=== PATIENT | female | born 1995 | race Caucasian/White ===

== ENCOUNTER 2020-07-05 19:26 | Emergency (ER) | payer OTHER, SELFPAY ==
--- NOTE | ~2020-07-05 | XR_ITS ---
EXAMINATION: XR chest 2V DATE: 07/05/2020 20:06 INDICATION: Midsternal chest pain TECHNIQUE: PA and lateral views of the chest are obtained. COMPARISON: 05/01/2008 FINDINGS: The lungs are free of acute opacities. There is no pleural effusion or pneumothorax. The ca rdiomediastinal silhouette is normal. The visualized bones and soft tissues are unremarkable. IMPRESSION: 1. No acute cardiopulmonary abnormality. Reviewed, dictated and finalized at location A.
--- NOTE | 2020-07-05 19:39 | ED.DIZZY ---
HPI - Dizziness General Chief Complaint: Dizziness Stated Complaint: chest pain Time Seen by Provider: 07/05/20 19:39 Source: patient and family Mode of arrival: ambulatory Limitations: no limitations History of Present Illness HPI Narrative: Patient is a 25-year-old female who presents for evaluation of chest pain. Patient was brought in by EMS from her place of work at the [facility] for sudden onset of chest pain. Patient states he was sitting, had not had any contact with any of the children there, when she suddenly felt a centralized chest pain. It was sharp, burning in nature and called her to burp and have some belching. Patient states that she took an aspirin and the pain started to subside. She felt slightly lightheaded and dizzy with the pain. Currently, patient has no pain. No dizziness. No abdominal pain concurrently. No nausea or vomiting. No current shortness of breath or palpitations. Patient denies any history of anxiety. She states that she has recently experienced intermittent headaches, but does not have a headache currently. She denies vision changes, numbness, weakness, nausea or vomiting. No thunderclap sensation to the headaches. No history of sudden cardiac in the family. Patient does take control. She does not smoke. Related Data Allergies Allergy/AdvReac Type Severity Reaction Status Date / Time horses cats hay straw Allergy Mild Uncoded 07/21/11 17:01 Review of Systems Review of Systems: Narrative: CONSTITUTIONAL: Denies fever, chills, or sweats. EYES: Denies visual changes, redness, or discharge. ENT: Denies rhinorrhea, congestion, sore throat, or otalgia. CARDIOVASCULAR: Denies current chest pain, palpitations, or edema. RESPIRATORY: Denies cough or dyspnea. GASTROINTESTINAL: Denies abdominal pain, nausea, vomiting, or diarrhea. GENITOURINARY: Denies dysuria or hematuria. SKIN: Denies rash or itching. MUSCULOSKELETAL: Denies back pain, joint pain, or myalgia. NEUROLOGIC: Denies current headache, numbness, or weakness. PSYCHIATRIC: Denies history of anxiety or depression. [facility] Past Medical History Medical History Constipation Social History Social History (Updated 07/05/20 @ 19:52 by Mile Andrews MD) Smoking status: Never smoker Alcohol intake: never Substance use: never Gender identity (if verbalized by the patient): Female Exam Narrative: Exam Narrative: GENERAL: Awake, alert, conversant HEAD: Normocephalic, atraumatic. EYES: 2+ PERRLA and EOMI. No nystagmus. ENT: Nares clear, no rhinorrhea or epistaxis. Mucous membranes moist. NECK: Supple. CHEST: No respiratory distress, breathing even and non labored, no chest wall tenderness HEART: Regular rate, sinus rhythm ABDOMEN:Non distended, non tender EXTREMITIES: Normal range of motion. No edema. SKIN: Warm, dry, no rash. NEURO:No focal deficits. Alert and oriented x3. Finger to nose intact bilaterally. EOMs intact without nystagmus. No facial droop/asymmetry noted bilaterally. Grimace intact. Intact sensation in face. Hearing intact bilaterally. Shoulder shrug intact. Strength 5/5 bilateral upper extremities. Strength 5/5 bilateral lower extremities. Reflexes 2+ patellar. Heel to zhu intact bilaterally. Patient is ambulatory with a narrow base, steady gait. Course Vital Signs Vital signs: Vital Signs Pulse Rate 70 07/05/20 20:49 Respiratory Rate 16 07/05/20 20:49 Blood Pressure 128/72 07/05/20 20:49 Pulse Oximetry 100 07/05/20 20:49 Pulse Rate 78 07/05/20 22:27 Respiratory Rate 16 07/05/20 22:27 Blood Pressure 130/79 07/05/20 22:27 Pulse Oximetry 100 07/05/20 22:27 MDM - Dizziness MDM Narrative Medical decision making narrative: Patient presented for evaluation of chest pain and dizziness that has mostly resolved at the time of assessment. No current chest pain at the time of my assessment. Patient'
--- NOTE | 2020-07-05 20:10 | ECG_ITS ---
Measurements Intervals [place] Rate: 62 P: 15 [place]: 160 QRS: 34 QRSD: 93 T: 16 QT: 416 QTc: 423 Interpretive Statements SINUS RHYTHM NORMAL ECG Electronically Signed On 07-06-2020 6:46:10 CDT by Ashvin Ryan D.O.
[2020-07-05] MEDS: ASPIRIN 81 MG CHEWABLE TABLET 324 MG PO (20:11)
[2020-07-05] MEDS: SODIUM CHLORIDE 0.9% IV 1,000 ML 999 ML IV CONT (20:11)
[2020-07-05 20:26] LABS: Basophils Percent Auto 0.4 % (0.2-1.2); Eosinophils Absolute Auto 0.2 K/mm3 (0-0.3); Eosinophils Percent Auto 2.5 % (0-4.4); Hemoglobin 12.8 g/dL (12.0-15.0); Immature Granulocyte Absolute 0.02 K/mm3 (0.00-0.031); Immature Granulocyte Percent A 0.2 % (0-0.5); Lymphocytes Absolute Auto 2.54 K/mm3 (0.9-3.2); Lymphocytes Percent Auto 30.2 % (18.3-44.2); Mean Corpuscular HGB Conc 33.7 g/dl (32-36); Mean Corpuscular Hemoglobin 30.3 pg (26-34); Mean Platelet Volume 11.4 fl (7.4-10.4); Monocytes Absolute Auto 0.8 K/mm3 (0.1-0.6); Monocytes Percent Auto 9.2 % (2.6-8.5); Neutrophils Absolute Auto 4.8 K/mm3 (1.3-6.7); Neutrophils Percent Auto 57.5 % (45.5-73.1); Platelet Count Result 301 k/mm3 (150-375); Red Blood Count 4.22 M/mm3 (4.2-5.4); Red Cell Distribution Width 12.3 % (11.5-14.5); White Blood Count 8.4 K/mm3 (4.5-10.0)
[2020-07-05 20:37] LABS: Anion Gap 7 mmol/L (8-16); Blood Urea Nitrogen 13 mg/dL (7-17); Calcium 8.8 mg/dL (8.4-10.2); Carbon Dioxide 25 mmol/L (22-30); Chloride 104 mmol/L (98-107); Estimated CRCL calculation 86 ml/min; Estimated Glomerular Filt Rate > 60; Glucose 93 mg/dL (65-105); Potassium 3.8 mmol/L (3.4-5.0); Sodium 136 mmol/L (137-145)
[2020-07-05 20:39] LABS: Partial Thromboplastin Time 26.4 SECONDS (22.3-36.8); Prothrombin Time 12.8 Seconds (11.1-14.7)
[2020-07-05 20:40] LABS: Add Urine Microscopic? YES; Appearance Urine Clear (Clear); Bilirubin Urine Negative (Negative); Blood Urine Negative (Negative); Color Urine Yellow (Yellow); Glucose Urine UA Negative (Negative); Ketones Urine Negative (Negative); Leukocyte Esterase Ur Trace LEU/UL (Negative); Mucus Urine Rare /lpf; Nitrate Urine Negative (Negative); Protein Urine Negative (Negative); RBC Urine 0-2 /hpf (0-2); Specific Grav Ur 1.021 (1.001-1.035); Squamous Epithelial Cell Urine Few /hpf (Few); Urobilinogen Urine Negative mg/dL (<2.0); WBC Urine 0-3 /hpf
[2020-07-05 20:49] VITALS: BP 128/72; PULSE 70; RESP 16; O2SAT 100
[2020-07-05 20:49] LABS: Troponin I < 0.012 ng/mL (0.000-0.034)
[2020-07-05 21:04] LABS: D Dimer 0.27 ug/mL (<0.48)
[2020-07-05 21:15] VITALS: BP 114/74; PULSE 72; RESP 18; O2SAT 100
[2020-07-05] MEDS: ACETAMINOPHEN 500 MG TABLET 1000 MG PO (22:07)
[2020-07-05 22:27] VITALS: BP 130/79; PULSE 78; RESP 16; O2SAT 100
[2020-07-05 23:06] LABS: Troponin I < 0.012 ng/mL (0.000-0.034)
[2020-07-05 23:28] VITALS: BP 119/79; PULSE 78; RESP 16; O2SAT 99
== END 2020-07-05 23:29 | disposition home or self-care (01) ==
PROVIDERS: Emergency Provider Emergency Medicine
DX: R07.89 Other chest pain (principal); R42 Dizziness and giddiness
CPT/HCPCS: 36415; 71046; 80048; 81001; 81025; 84484; 85025; 85380; 85610; 85730; 93005; 96360; 99284; A9270; J7030

== ENCOUNTER 2020-07-20 09:05 | Inpatient (IN) | payer OTHER, SELFPAY ==
--- NOTE | ~2020-07-20 | US_ITS ---
EXAMINATION: US right upper quadrant EXAM DATE: 07/20/2020 15:40 INDICATION: Cholelithiasis, abnormal CT. TECHNIQUE: Multiple grayscale and Doppler images of the abdomen right upper quadrant were obtained (b y a technologist who performed the scan) and subsequently reviewed. There is no prior study for kaushik pollock. FINDINGS: The pancreatic head and body are normal in appearance. The pancreatic tail is not visualized. The l iver has normal echogenicity and contour. There are no focal liver lesions identified. There is no evidence of intrahepatic biliary duct dilation. Portal venous flow was seen in the hepatopedal, nor mal direction and has normal Doppler waveform. No right-sided hydronephrosis. Common bile duct measures 4-5 mm, which is normal. The gallbladder wall is normal in thickness, with expected amount of distention. No sonographic evidence of pericholecystic fluid. There is cholelith iasis. Technologist performing exam reports patient did not demonstrate sonographic Davila's sign. Please note that this sign is less reliable in patients who have received pain medication. IMPRESSION: 1. Cholelithiasis. Reviewed, dictated and finalized at location G. IMPRESSION: 1. Cholelithiasis.
--- NOTE | ~2020-07-20 | CT_ITS ---
EXAMINATION: CT abdomen pelvis w con DATE: 07/20/2020 13:19 INDICATION: Lower abdominal pain TECHNIQUE: Computed tomography (CT) of the abdomen and pelvis was performed with 100 mL Omnipaque-350 intravenous contrast. Automated exposure control and iterative reconstruction technique were employe d. The dose-length product was 934.44 mGy-cm. COMPARISON: 10/19/2015 FINDINGS: Change linear discoid atelectasis/scarring in the left lower lobe. Heart size is normal. No pericardi al or pleural effusion. Small sliding-type hiatal hernia. Liver, spleen, pancreas, bilateral adrenal glands and kidneys are normal. Multiple gallstones within the normal-appearing gallbladder with no ga llbladder wall thickening or pericholecystic inflammatory change to suggest acute cholecystitis. Norm al appendix. There is mild wall thickening in the distal colon suspicious for colitis although specif icity is decreased by decompressed state. There is fluid in the more proximal colon consistent with d iarrhea. Small bowel is normal with no obstruction. 2 cm subserosal fibroid along the right anterior aspect of the anteverted uterus. A couple 1.8 cm left ovarian cysts, one with peripheral crenelated e nhancing rim consistent with a partially collapsed corpus luteum cyst. Trace amount of likely physiol ogic free fluid in the pelvis. No abscess or free intraperitoneal gas. No pathologically enlarged abd ominal or pelvic lymphadenopathy. Mild lumbar spondylosis. IMPRESSION: 1. Mild wall thickening in the decompressed distal colon suspicious for colitis which could be infect ious, inflammatory or less likely ischemic in etiology.. 2. Cholelithiasis. 3. Small sliding-type hiatal hernia. 4. 2 cm uterine fibroid. 5. 1.8 cm left ovarian corpus luteum cyst. Reviewed, dictated and finalized at location A. IMPRESSION: 1. Mild wall thickening in the decompressed distal colon suspicious for colitis which could be infectious, inflammatory or less likely ischemic in etiology.. 2. Cholelithiasis. 3. Small sliding-type hiatal hernia. 4. 2 cm uterine fibroid. 5. 1.8 cm left ovarian corpus luteum cyst.
[2020-07-20 09:25] VITALS: BP 122/102; PULSE 82; RESP 22; TEMP 36.8; O2SAT 100
--- NOTE | 2020-07-20 10:39 | ECG_ITS ---
Measurements Intervals [place] Rate: 62 P: -14 [place]: 137 QRS: -55 QRSD: 93 T: -29 QT: 406 QTc: 415 Interpretive Statements SINUS RHYTHM WITH SINUS ARRHYTHMIA LEFT AXIS DEVIATION LOW QRS VOLTAGE IN LIMB LEADS BORDERLINE ST-T WAVE ABNORMALITY- INFERIOR LEADS BASELINE ARTIFACT- I, III, AVR, AVL, AVF BORDERLINE ECG Electronically Signed On 07-20-2020 11:23:34 CDT by Ashvin Ryan D.O.
--- NOTE | 2020-07-20 10:41 | ED.CHESTPAIN ---
HPI - Chest Pain General Chief Complaint: Chest Pain Stated Complaint: chest pain Time Seen by Provider: 07/20/20 09:57 Source: patient Mode of arrival: ambulatory Limitations: no limitations History of Present Illness HPI narrative: This patient is a 25 year old female who presents for evaluation of abdominal pain. Patient states she is having epigastric pain that radiates to her lower abdomen. She states this pain occurs in waves and she describes the pain as stabbing. This pain started at 2 am this morning. She has taken 600 mg ibuprofen and tums without relief. She also states her pain is so severe at times that she is vomiting. She was evaluated 2 weeks ago for epigastric pain and her evaluation was unremarkable. Related Data Home Medications Medication Instructions Recorded Confirmed norethindrone 1 mg-ethinyl 1 tablet PO DAILY 07/12/20 07/20/20 estradiol 35 mcg tablet Allergies Allergy/AdvReac Type Severity Reaction Status Date / Time horses cats hay straw Allergy Mild Swelling Uncoded 07/20/20 17:18 Review of Systems Review of Systems: All systems reviewed & are unremarkable except as noted in HPI and below Constitutional: Constitutional: Denies chills and Denies fever(s) Cardiovascular: Cardiovascular: Denies rapid heart rate and Denies radiating jaw, neck or arm pain Respiratory: Respiratory: Denies cough and Denies dyspnea Gastrointestinal: Gastrointestinal: Reports abdominal pain, Denies diarrhea, Reports nausea and Reports vomiting Genitourinary: Genitourinary: Denies dysuria and Denies vaginal discharge PMFSH Past Medical History Medical History (Updated 07/20/20 @ 19:07 by Kelsi Rock MD) Chronic GERD Constipation Surgical History Surgical History (Updated 07/20/20 @ 18:30 by Lucy Cantor NP) H/O wisdom tooth extraction History of nasal surgery x3 Family History Family History Father Myocardial infarction Hypertension Mother History of open heart surgery Grandparent Cancer of unknown origin Ovarian cyst Social History Social History (Updated 07/20/20 @ 18:31 by Lucy Cantor NP) Social History: the patient owns her own home. She is single and has no children. 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 She has a roommate but the roommate is leaving after 1 month. She does not use any alcohol. She has used marijuana in the past. She does not have any power remelt pan tank operator. She desires to be a full code. She said that she would choose her dad as a durable power remelt pan tank operator if need be. Smoking status: Light tobacco smoker Tobacco type: cigarettes Additional smoking assessment comments: smokes 1 cigarette on occasion while drinking Alcohol intake: current Drinks per week: 3 Substance use: never Substance use type: does not use Other substance usage details: occasional marijuana use for anxiety Gender identity (if verbalized by the patient): Female Spiritual care concerns: No Exam Const: General: alert Orientation/consciousness: patient oriented x3 Other: writing in pain Eyes: EOM: EOMs intact bilaterally Chest: Chest palpation & inspection: normal inspection of the chest Resp: Effort & Inspection: normal respiratory effort and no retractions Auscultation: clear to auscultation bilaterally Cardio: Rate: regular rate Rhythm: regular rhythm Heart sounds: no murmurs GI: GI Palp: Yes Soft to palpation, Yes Tenderness to palpation present (GI) (Diffuse), No Guarding due to palpation present (GI) and No Rigid due to palpation Skin: General skin exam: normal color Rashes: no rashes Neuro: General: patient oriented x3 and moves all extremities Course Reevaluation(s) Reevaluation #1: Patient reports she is still having pain. I discussed CT showing gallstones , left ovarian cyst and possible colitis. It is unclear if any of these are causing her pain
[2020-07-20] MEDS: LACTATED RINGERS 1,000 ML 999 ML IV CONT (10:44)
[2020-07-20] MEDS: ONDANSETRON INJ 4 MG/2 ML VIAL IV PUSH ×3 (10:45→15:10)
[2020-07-20] MEDS: DICYCLOMINE HCL INJ 20 MG/2 ML VIAL IM (10:45)
[2020-07-20 11:00] LABS: Basophils Percent Auto 0.3 % (0.2-1.2); Eosinophils Percent Auto 0.4 % (0-4.4); Hematocrit 38.9 % (37.0-47.0); Hemoglobin 13.5 g/dL (12.0-15.0); Immature Granulocyte Absolute 0.04 K/mm3 (0.00-0.031); Immature Granulocyte Percent A 0.4 % (0-0.5); Lymphocytes Absolute Auto 1.46 K/mm3 (0.9-3.2); Lymphocytes Percent Auto 13.2 % (18.3-44.2); Mean Corpuscular HGB Conc 34.7 g/dl (32-36); Mean Corpuscular Hemoglobin 30.3 pg (26-34); Mean Corpuscular Volume 87.4 fl (80-100); Mean Platelet Volume 12.2 fl (7.4-10.4); Monocytes Absolute Auto 0.7 K/mm3 (0.1-0.6); Monocytes Percent Auto 5.9 % (2.6-8.5); Neutrophils Absolute Auto 8.8 K/mm3 (1.3-6.7); Neutrophils Percent Auto 79.8 % (45.5-73.1); Platelet Count Result 315 k/mm3 (150-375); Red Blood Count 4.45 M/mm3 (4.2-5.4); Red Cell Distribution Width 12.1 % (11.5-14.5)
[2020-07-20 11:06] LABS: Alanine Aminotransferase 18 U/L (4-35); Albumin Level 4.4 g/dL (3.5-5.1); Alkaline Phosphatase 64 U/L (38-126); Anion Gap 11 mmol/L (8-16); Aspartate Amino Transferase 24 U/L (14-36); Bilirubin,Total 0.3 mg/dL (0.2-1.3); Blood Urea Nitrogen 8 mg/dL (7-17); Calcium 9.4 mg/dL (8.4-10.2); Carbon Dioxide 22 mmol/L (22-30); Chloride 104 mmol/L (98-107); Estimated CRCL calculation 136 ml/min; Estimated Glomerular Filt Rate > 60; Glucose 109 mg/dL (65-105); Lipase 72 U/L (23-300); Potassium 3.7 mmol/L (3.4-5.0); Sodium 137 mmol/L (137-145)
[2020-07-20 11:16] LABS: Add Urine Microscopic? YES; Appearance Urine Clear (Clear); Bacteria Urine Trace /hpf; Bilirubin Urine Negative (Negative); Blood Urine Negative (Negative); Color Urine Yellow (Yellow); Glucose Urine UA Negative (Negative); Ketones Urine 1+ mg/dL (Negative); Leukocyte Esterase Ur Negative LEU/UL (Negative); Mucus Urine Heavy /lpf; Nitrate Urine Negative (Negative); Protein Urine 1+ mg/dL (Negative); RBC Urine 0-2 /hpf (0-2); Specific Grav Ur 1.025 (1.001-1.035); Squamous Epithelial Cell Urine Many /hpf (Few); Urobilinogen Urine Negative mg/dL (<2.0)
[2020-07-20 11:16] LABS: Troponin I < 0.012 ng/mL (0.000-0.034)
[2020-07-20] MEDS: MORPHINE SULFATE (*CRX) 4 MG/ML INJ IV PUSH (12:03)
[2020-07-20 12:04] VITALS: BP 153/97; PULSE 78; RESP 22; O2SAT 99
[2020-07-20] MEDS: KETOROLAC 30 MG/ML VIAL (*BKC) IV PUSH (13:59)
[2020-07-20] MEDS: HYDROmorphone HCL INJ (*CRX) 1 MG/ML SYR IV PUSH (15:10)
[2020-07-20] MEDS: SODIUM CHLORIDE 0.9% IV 1,000 ML 999 ML IV CONT (15:11)
[2020-07-20 15:18] VITALS: BP 142/78; PULSE 78; RESP 18; O2SAT 99
[2020-07-20] MEDS: PANTOPRAZOLE SODIUM IV 40 MG VIAL IV PUSH (15:43)
[2020-07-20 16:40] VITALS: BP 121/76; PULSE 63; RESP 18; TEMP 36.9; O2SAT 98
[2020-07-20] MEDS: SODIUM CHLORIDE 0.9% IV 1,000 ML 125 ML IV CONT (16:51)
[2020-07-20 17:00] VITALS: BMI 33.0
[2020-07-20] MEDS: HYDROmorphone HCL INJ (*CRX) 1 MG/ML SYR 0.5 MG IV PUSH ×2 (17:19→21:18)
--- NOTE | 2020-07-20 18:23 | PM.IMHP ---
H&P: HPI History of Present Illness Date/Time: 07/20/20 18:23 Chief complaint: intractable abdominal pain with nausea Narrative: Diana Sams is a 25 year old female Who came to the emergency room on 07/05/2020 to be evaluated for chest pain. She was brought in by EMS for work at a [employer] for sudden onset of chest pain. She felt centralized chest pain. This resolved in the emergency room. EKG and labs were without significant high wrist. Her D-dimer was negative at that time. Patient was given IV fluids Tylenol and was able to ambulate without difficulty at that time. Patient was discharged to home and followed up with her primary care doctor. Patient has complaints of constipation and has been nauseated and dry heaving. Patient stated she has not had a bowel movement 2 days. She tried Linzess which did nothing for her. The patient came into the emergency room again today with complaints of abdominal pain. Patient states she is having epigastric pain that radiated to her lower abdomen. She said that she has chronic constant pain but the intensity changes. She has tried ibuprofen and Tums without relief. This pain started at 2:00 a.m. this morning. Her workup 2 weeks ago was unremarkable. She stated that her primary care doctor was going to put her on a Holter monitor and check out her heart. She did not have a primary care doctor until she was ill 2 weeks ago. Now she has a primary care doctor. She has not been did GI specialist. CT of her abdomen showed mild wall thickening in the decompressed distal colon suspicious for colitis which could be infectious inflammatory least likely ischemic any allergy. Cholelithiasis. Small sliding hiatal hernia. 2 cm uterine fibroid. 1.8 cm left ovarian corpus luteum cyst. The patient stated that she has had cyst since high school has not caused her any pain. Right upper quadrant ultrasound shows cholelithiasis. Patient was given Zofran, IV fluids of lactated Ringer's, Bentyl, morphine, Zofran, Toradol, normal saline, Dilaudid, and Zosyn for colitis. Patient is not having any discomfort at this time is asking for ice chips. The patient stated that the Bentyl did nothing for her. The Toradol did nothing for her. Her white count was noted to be 11.0. Urine was negative. Date of service 07/20/2020 Review of Systems Review of Systems: All systems reviewed & are unremarkable except as noted in HPI and below Constitutional: Constitutional: Reports as per HPI and Reports no additional constitutional complaints Eyes: Eyes: Reports as per HPI and Reports no additional eye complaints ENT: Reports system reviewed and no additional complaints, except as documented and Reports Normal hearing present Cardiovascular: Cardiovascular: Reports no additional cardiovascular complaints Respiratory: Respiratory: Reports no additional respiratory complaints and Reports no additional respiratory complaints Gastrointestinal: Gastrointestinal: Reports as per HPI and Reports no additional gastrointestinal complaints Musculoskeletal: Musculoskeletal: Reports no additional musculoskeletal complaints Integumentary/Breasts: Skin/Breast: Reports system reviewed and no additional complaints, except as docu and Reports as per HPI Neurologic: Reports system reviewed and no additional complaints, except as documented, Reports as per HPI and Reports Normal hearing present Psychiatric: Psychiatric: Reports no additional psychiatric complaints and Reports as per HPI Endocrine: Endocrine: Reports no additional endocrine complaints Hematologic/Lymphatic: Hematologic/Lymphatic: Reports no additional hematologic/lymphatic complaints Allergic/Immunologic: Allergic/Immunologic: Reports no additional allergic/immunologic complaints [facility] Past Medical History Medical History (Updated 07/20/20 @ 18:33 by Lucy Cantor NP) Chronic GERD Constipation Surgical History Surgical History (Updated
[2020-07-20] MEDS: BISACODYL 10 MG SUPPOSITORY RECTAL (20:13)
[2020-07-20 21:26] VITALS: BP 110/71; PULSE 57; RESP 16; TEMP 36.7; O2SAT 98
[2020-07-20 22:55] VITALS: PULSE 54
[2020-07-21] VITALS (9 sets, daily range): BP systolic 110–115; BP diastolic 61–71; PULSE 57–83; RESP 14–18; TEMP 36.6–37.2; O2SAT 98–100
[2020-07-21] MEDS: SODIUM CHLORIDE 0.9% IV 1,000 ML 125 ML IV CONT ×3 (01:09→19:19)
[2020-07-21] MEDS: HYDROmorphone HCL INJ (*CRX) 1 MG/ML SYR 0.5 MG IV PUSH ×6 (02:06→22:31)
[2020-07-21 06:06] LABS: Basophils Absolute Auto 0.1 K/mm3 (0.0-0.1); Basophils Percent Auto 0.3 % (0.2-1.2); Eosinophils Absolute Auto 0.4 K/mm3 (0-0.3); Eosinophils Percent Auto 2.8 % (0-4.4); Hematocrit 33.1 % (37.0-47.0); Immature Granulocyte Absolute 0.06 K/mm3 (0.00-0.031); Immature Granulocyte Percent A 0.4 % (0-0.5); Lymphocytes Absolute Auto 2.65 K/mm3 (0.9-3.2); Lymphocytes Percent Auto 18.5 % (18.3-44.2); Mean Corpuscular HGB Conc 33.2 g/dl (32-36); Mean Corpuscular Hemoglobin 29.6 pg (26-34); Monocytes Absolute Auto 1.4 K/mm3 (0.1-0.6); Monocytes Percent Auto 9.6 % (2.6-8.5); Neutrophils Absolute Auto 9.8 K/mm3 (1.3-6.7); Neutrophils Percent Auto 68.4 % (45.5-73.1); Platelet Count Result 240 k/mm3 (150-375); Red Blood Count 3.72 M/mm3 (4.2-5.4); Red Cell Distribution Width 12.2 % (11.5-14.5); White Blood Count 14.3 K/mm3 (4.5-10.0)
[2020-07-21 06:22] LABS: Alanine Aminotransferase 14 U/L (4-35); Alkaline Phosphatase 43 U/L (38-126); Anion Gap 4 mmol/L (8-16); Aspartate Amino Transferase 21 U/L (14-36); Bilirubin,Total 0.6 mg/dL (0.2-1.3); Blood Urea Nitrogen 6 mg/dL (7-17); Calcium 7.9 mg/dL (8.4-10.2); Carbon Dioxide 29 mmol/L (22-30); Chloride 105 mmol/L (98-107); Estimated CRCL calculation 119 ml/min; Estimated Glomerular Filt Rate > 60; Glucose 97 mg/dL (65-105); Lipase 36 U/L (23-300); Magnesium 1.8 mg/dL (1.6-2.3); Potassium 3.6 mmol/L (3.4-5.0); Sodium 138 mmol/L (137-145)
[2020-07-21] MEDS: PANTOPRAZOLE SODIUM IV 40 MG VIAL IV PUSH (08:28)
--- NOTE | 2020-07-21 09:25 | WPDGICN ---
Assessment and Plan Assessment and plan (1) Constipation: Code(s): K59.00 - Constipation, unspecified Status: Chronic Assessment and Plan: Patient continues to have constipation. Plan is to continue laxatives period is likely this contributes to some component of her abdominal pain. CT scan revealed poor distention of the colon and possibility of thickening of the colon. If symptoms fail to improve after laxatives in bowel movements further investigation may be warranted later. (2) Cholelithiasis: Code(s): K80.20 - Calculus of gallbladder without cholecystitis without obstruction Status: Acute Assessment and Plan: Patient was identified as having gallstones on CT scan. It is uncertain how this contributes to her pain. A HIDA scan will be ordered. (3) Intermittent chest pain: Code(s): R07.9 - Chest pain, unspecified Status: Acute (4) Abdominal pain: Code(s): R10.9 - Unspecified abdominal pain Status: Acute Assessment and Plan: Abdominal pain is rather diffuse. Hopefully pain will improve with laxatives and a bowel movement. If pain persists despite this an EGD can be performed electively. Patient has had nausea vomiting which could be related to her constipation. GI Consult Note Consult date/time: 07/21/20 09:25 HPI: Diana Sams is a 25 year old female I am asked to see because of abdominal pain. Patient states symptoms began about 2 weeks ago with chest pain. She states that time this continued in over the last 2-3 days has had some nausea vomiting and constipation. She has had no bowel movement of any significance for the last 3 days. She states that she has developed abdominal pain rather diffusely across her abdomen. Upon presenting to the emergency room a CT scan which performed which revealed gallstones. A question of wall thickening in the colon which could be because of a decompressed colon. Review of Systems Review of Systems: All systems reviewed & are unremarkable except as noted in HPI and below Cardiovascular: Cardiovascular: Reports chest pain Gastrointestinal: Gastrointestinal: Reports change in bowel habits and Reports constipation PMFSH Past Medical History Medical History (Updated 07/21/20 @ 09:29 by Silvestre Armendariz MD) Chronic GERD Constipation Surgical History Surgical History (Updated 07/20/20 @ 18:30 by Lucy Cantor NP) H/O wisdom tooth extraction History of nasal surgery x3 Family History Family History Father Myocardial infarction Hypertension Mother History of open heart surgery Grandparent Cancer of unknown origin Ovarian cyst Social History Social History (Updated 07/20/20 @ 18:31 by Lucy Cantor NP) Social History: the patient owns her own home. She is single and has no children. 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 She does not use any alcohol. She has used marijuana in the past. She does not have any power civil attorney. She desires to be a full code. She said that she would choose her dad as a durable power civil attorney if need be. Smoking status: Light tobacco smoker Tobacco type: cigarettes Additional smoking assessment comments: smokes 1 cigarette on occasion while drinking Alcohol intake: current Drinks per week: 3 Substance use: never Substance use type: does not use Other substance usage details: occasional marijuana use for anxiety Gender identity (if verbalized by the patient): Female Spiritual care concerns: No Meds Home Medications and Allergies Home Medications Medication Instructions Recorded Confirmed Type norethindrone 1 mg-ethinyl 1 tablet PO DAILY 07/12/20 07/20/20 History estradiol 35 mcg tablet Allergies Allergy/AdvReac Type Severity Reaction Status Date / Time horses cats hay straw
--- NOTE | 2020-07-21 09:54 | PM.IMPN ---
Progress Note: A&P Assessment and Plan (1) Abdominal pain: Qualifiers: Abdominal location: epigastric Qualified Code(s): R10.13 - Epigastric pain Code(s): R10.9 - Unspecified abdominal pain Status: Acute Assessment and Plan: Patient presents for evaluation of significant abdominal pain, worst in epigastrium. She first noticed this pain 2 weeks ago and was intermittent at that time, however the pain returned around 2am 07/20 and has been constant since then. Associated vomiting but none so far today. CT abdomen/pel demonstrates a mild colonic wall thickening which could represent colitis or decompressed colon. CT and RUQ US shows evidence of cholelithiasis without cholecystitis. Mild leukocytosis. Will continue with IV Zosyn to cover for possible colitis. Continue IV hydration, pain control and antiemetics. Will monitor. Appreciate Dr Armendariz's input. Agree with HIDA scan. (2) Cholelithiasis: Qualifiers: Biliary obstruction: without biliary obstruction Cholecystitis presence: without cholecystitis Cholelithiasis location: gallbladder Qualified Code(s): K80.20 - Calculus of gallbladder without cholecystitis without obstruction Code(s): K80.20 - Calculus of gallbladder without cholecystitis without obstruction Status: Acute Assessment and Plan: Without evidence of cholecystitis however patient continues with significant pain. HIDA ordered. Appreciate general surgery consultation in this setting. (3) Constipation: Qualifiers: Constipation type: unspecified constipation type Qualified Code(s): K59.00 - Constipation, unspecified Code(s): K59.00 - Constipation, unspecified Status: Chronic Assessment and Plan: Patient reports no BM in 3 to 4 days, notes she does not normally have regular BMs. May be contributing to her pain. Continue miralax and suppositories. Subjective Date/time seen: 07/21/20 09:15 Interval history: Ms. Sams is a 25yo F admitted for abdominal pain. She was evaluated in the ED 2 weeks ago for what she described as chest pain and workup was unremarkable. She describes that 2 evenings ago, she woke out of her sleep around 2am with significant epigastric pain that has been pretty well constant since that time. She describes that the pain is so intense that she has been vomiting. She has not had a bowel movement in 4 days. No nausea or vomiting this morning however she appears quite uncomfortable and rates her pain 8/10 at present. She denies other chest pain or shortness of breath, however it is difficult for her to take a deep breath due to the abdominal pain. Review of Systems Review of Systems: All systems reviewed & are unremarkable except as noted in HPI and below Exam Narrative: Exam Narrative: General: Female resting supine in bed, appears uncomfortable due to pain. HEENT: Normocephalic, EOMI, oral mucosa moist. Cardiovascular: Rate and rhythm are regular. No notable murmur, rub, or gallop. Respiratory: Lungs clear to auscultation all melo. Non-labored breathing. Abdomen: Soft, non-distended, bowel sounds hypoactive. Diffuse tenderness to palpation with voluntary guarding worst in epigastrium. Extremities: Peripheral pulses intact. No edema. Neuro: No focal neurological deficits. Speech is clear. Objective Data Vital Signs Vital Signs: Last Vital Signs Temp 97.9 F 07/21/20 06:00 Pulse 76 07/21/20 06:00 Resp 18 07/21/20 06:00 BP 112/63 07/21/20 06:00 Pulse Ox 98 07/21/20 06:00 Intake/Output Intake/Output: Intake & Output 07/18/20 07/19/20 07/20/20 07/21/20 23:59 23:59 23:59 23:59 Intake Total 1200 1210 Output Total 800 Balance 1200 410 Meds/Results Medications: Active Medications Generic Name Dose Route Start Last Admin Trad
[2020-07-21] MEDS: polyethylene glycoL 3350 17 GM POWD.PACK PO (10:04)
[2020-07-21] MEDS: BISACODYL 10 MG SUPPOSITORY RECTAL (10:05)
[2020-07-21] MEDS: MAGNESIUM CITRATE 300 ML BTL 150 ML PO (15:51)
[2020-07-22] VITALS: PULSE 74
[2020-07-22] MEDS: SODIUM CHLORIDE 0.9% IV 1,000 ML 125 ML IV CONT ×2 (02:34→10:10)
[2020-07-22] MEDS: HYDROmorphone HCL INJ (*CRX) 1 MG/ML SYR 0.5 MG IV PUSH ×5 (02:35→22:39)
[2020-07-22 04:00] VITALS: PULSE 71
[2020-07-22 06:00] VITALS: BP 108/56; PULSE 76; RESP 16; TEMP 36.9; O2SAT 97
[2020-07-22 06:35] LABS: Basophils Percent Auto 0.4 % (0.2-1.2); Eosinophils Absolute Auto 0.6 K/mm3 (0-0.3); Eosinophils Percent Auto 5.8 % (0-4.4); Hematocrit 31.5 % (37.0-47.0); Hemoglobin 10.3 g/dL (12.0-15.0); Immature Granulocyte Absolute 0.03 K/mm3 (0.00-0.031); Immature Granulocyte Percent A 0.3 % (0-0.5); Lymphocytes Absolute Auto 2.22 K/mm3 (0.9-3.2); Lymphocytes Percent Auto 21.3 % (18.3-44.2); Mean Corpuscular HGB Conc 32.7 g/dl (32-36); Mean Corpuscular Hemoglobin 29.8 pg (26-34); Mean Platelet Volume 11.7 fl (7.4-10.4); Monocytes Absolute Auto 1.3 K/mm3 (0.1-0.6); Monocytes Percent Auto 12.2 % (2.6-8.5); Neutrophils Absolute Auto 6.2 K/mm3 (1.3-6.7); Platelet Count Result 206 k/mm3 (150-375); Red Blood Count 3.46 M/mm3 (4.2-5.4); Red Cell Distribution Width 12.4 % (11.5-14.5); White Blood Count 10.4 K/mm3 (4.5-10.0)
[2020-07-22 06:51] LABS: Anion Gap 3 mmol/L (8-16); Blood Urea Nitrogen 3 mg/dL (7-17); Calcium 7.6 mg/dL (8.4-10.2); Carbon Dioxide 28 mmol/L (22-30); Chloride 104 mmol/L (98-107); Estimated CRCL calculation 119 ml/min; Estimated Glomerular Filt Rate > 60; Glucose 92 mg/dL (65-105); Magnesium 2.1 mg/dL (1.6-2.3); Potassium 3.4 mmol/L (3.4-5.0); Sodium 135 mmol/L (137-145)
[2020-07-22 08:00] VITALS: PULSE 80
[2020-07-22] MEDS: POTASSIUM CHLORIDE 20 MEQ TABLET 40 MEQ PO (08:26)
[2020-07-22] MEDS: PANTOPRAZOLE SODIUM IV 40 MG VIAL IV PUSH (08:28)
--- NOTE | 2020-07-22 08:49 | WPDGIPROGNO ---
Progress Note: A&P Additional Plan Patient alert this morning. Passed a bowel movement during the night period beginning to feel somewhat improved. Continues to complain of right upper quadrant pain at this time. Physical exam reveals patient to be afebrile. She is anicteric. Lungs are clear. Heart without murmur. Abdomen bowel sounds present soft tender in the right upper quadrant noted. No organomegaly. Impression 1. Right upper quadrant pain. Appears to correlate with known gallstones. HIDA scan pending. LFTs are normal at present. Suspect she may have underlying cholecystitis. If HIDA scan negative an EGD will be considered. Consider surgical follow-up for her. 2. Cholelithiasis. Appears to correlate with right upper quadrant pain peers to have symptomatic gallstones. 3. Constipation. Now relieved. Patient is notice marked improvement in other abdominal pains after recent bowel movement. Subjective Date/time seen: 07/22/20 08:49 Objective Data Vital Signs Vital Signs: Vital Signs - 24 hr 07/21/20 12:00 07/21/20 14:00 07/21/20 16:00 Temperature 98.9 F Pulse Rate 71 83 76 Respiratory Rate 14 Blood Pressure 115/71 Pulse Oximetry 100 07/21/20 20:00 07/21/20 22:00 07/22/20 00:00 Temperature 98.8 F Pulse Rate 81 72 74 Respiratory Rate 18 Blood Pressure 110/61 Pulse Oximetry 98 07/22/20 04:00 07/22/20 06:00 07/22/20 08:00 Temperature 98.5 F Pulse Rate 71 76 80 Respiratory Rate 16 Blood Pressure 108/56 L Pulse Oximetry 97 Intake/Output Intake/Output: Intake & Output 07/19/20 07/20/20 07/21/20 07/22/20 23:59 23:59 23:59 23:59 Intake Total 1200 3860 1700 Output Total 2300 1200 Balance 1200 1560 500 Meds/Results Medications: Active Medications Generic Name Dose Route Start Last Admin Trade Name Freq PRN Reason Stop Dose Admin Hydromorphone HCl 0.5 mg 07/20/20 15:14 07/22/20 02:35 Hydromorphone Hcl Inj (*Crx) 1 Mg/Ml Syr IV PUSH 0.5 mg Q4H PRN Administration Pain Rated 7-10 Sodium Chloride 1,000 mls @ 125 mls/hr 07/20/20 15:15 07/22/20 02:34 Normal Saline Iv IV CONT 125 mls/hr .Q8H DENI Administration Piperacillin/Tazobactam/Dextrose 3.375 gm in 50 mls @ 100 mls/hr 07/20/20 21:00 07/22/20 03:04 Zosyn 3.375 Gm/D5w 50ml Pm IVPB Infused Q6H DENI Infusion Acetaminophen 1,000 mg in 100 mls @ 400 mls/hr 07/21/20 21:21 07/22/20 08:38 Ofirmev 1,000 Mg Ivpb IVPB 07/22/20 21:22 400 mls/hr Q6H PRN Administration Pain Rated 4-6 Ondansetron HCl 4 mg 07/20/20 15:14 Ondansetron Inj 4 Mg/2 Ml Vial IV PUSH Q4H PRN Nausea Pantoprazole Sodium 40 mg 07/21/20 09:00 07/22/20 08:28 Pantoprazole Sodium Iv 40 Mg Vial IV PUSH 40 mg QAM DENI Administration Polyethylene Glycol 17 gm 07/21/20 09:31 07/21/20 10:04 Polyethylene Glycol 3350 17 Gm Powd.Pack PO 17 gm QAM PRN Administration Constipation Radiology Results: ITS Impressions Abdomen/Pelvis CT 07/20/20 13:22 IMPRESSION: 1. Mild wall thickening in the decompressed distal colon suspicious for colitis which could be infectious, inflammatory or less likely ischemic in etiology.. 2. Cholelithiasis. 3. Small sliding-type hiatal hernia. 4. 2 cm uterine fibroid. 5. 1.8 cm left ovarian corpus luteum cyst. Upper Quadrant Ultrasound 07/20/20 15:43 IMPRESSION: 1. Cholelithiasis. Labs Labs: Laboratory Results - last 24 hr 07/21/20 07/22/20 07/22/20 05:16 06:15 06:15 WBC 10.4 H RBC 3.46 L Hgb 10.3 L Hct 31.5 L MCV 91.0 MCH 29.8 MCHC 32.7 RDW 12.4 Plt Count 206 MPV 11.7 H Immature Gran % (Auto) 0.3 Neut % (Auto) 60.0 Lymph % (Auto) 21.3 [place] % (Auto) 12.2 H Eos % (Auto) 5.8 H Baso % (Auto) 0.4 Lymph # (Auto) 2.22 [place] # (Auto) 1.3 H Eos # (Auto) 0.6 H Baso # (Auto) 0.0 Abs Immat Gran (auto) 0.03 Absolute Neuts (auto) 6.2 Ab
--- NOTE | 2020-07-22 11:02 | PM.CNGS ---
Assessment and Plan Assessment and plan (1) Cholelithiasis: Qualifiers: Biliary obstruction: without biliary obstruction Cholecystitis presence: without cholecystitis Cholelithiasis location: gallbladder Qualified Code(s): K80.20 - Calculus of gallbladder without cholecystitis without obstruction Code(s): K80.20 - Calculus of gallbladder without cholecystitis without obstruction Status: Acute Assessment and Plan: workup c/w symptomatic cholecystitis, pt cont to be quite symptomatic, cont low fat diet for now as dario, will plan for cholecystectomy tomorrow History of Present Illness Consult details Consult date: 07/22/20 Reason for consult: gallstones Requesting physician: Hernandez Burton MD Narrative: Pt is a 25 y/o F presenting to ED c/o severe upper abd pain. Pt reports pain acutely woke her from sleep on morning. Pt reports pain was severe, constant, sharp. Pt reports assoc nausea, emesis, bloating. Pt reports she had been having intermittent upper abd/chest pain over last month. Pt actually seen in ED for CP and had negative workup. Pt reports father had biliary dz requiring cholecystectomy. Review of Systems Constitutional: Constitutional: Reports anorexia, Denies chills, Denies fatigue, Denies fever(s), Denies headache(s), Denies malaise, Reports poor appetite, Denies weakness, Denies weight gain and Denies weight loss Eyes: Eyes: Denies change in vision and Denies loss of vision ENT: Denies dysphagia, Denies headache(s), Denies hearing loss and Denies sore throat Cardiovascular: Cardiovascular: Reports chest pain, Denies syncope, Denies irregular heart rhythm, Denies leg edema and Denies dyspnea Respiratory: Respiratory: Denies cough and Denies dyspnea Gastrointestinal: Gastrointestinal: Reports abdominal pain, Reports bloating, Denies change in bowel habits, Denies change in stool character, Denies constipation, Denies dysphagia, Reports dyspepsia, Reports heartburn, Denies diarrhea, Reports nausea and Reports vomiting Genitourinary: Genitourinary: Denies urinary frequency, Denies dysuria and Denies urinary urgency Musculoskeletal: Musculoskeletal: Denies myalgias, Denies arthralgias and Denies muscle cramps Integumentary/Breasts: Skin/Breast: Denies non-healing lesions and Denies rash Neurologic: Denies syncope, Denies headache(s) and Denies loss of vision Psychiatric: Psychiatric: Reports no additional psychiatric complaints Endocrine: Endocrine: Denies change in body appearance and Denies fatigue Hematologic/Lymphatic: Hematologic/Lymphatic: Denies easy bleeding, Denies easy bruising and Denies lymphadenopathy Allergic/Immunologic: Allergic/Immunologic: Reports no additional allergic/immunologic complaints PMFSH Past Medical History Medical History Chronic GERD Constipation Surgical History Surgical History H/O wisdom tooth extraction History of nasal surgery x3 Family History Family History Father Myocardial infarction Hypertension Mother History of open heart surgery Grandparent Cancer of unknown origin Ovarian cyst Social History Social History Social History: the patient owns her own home. She is single and has no children. 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 She has a roommate but the roommate is leaving after 1 month. She does not use any alcohol. She has used marijuana in the past. She does not have any power commercial attorney. She desires to be a full code. She said that she would choose her dad as a durable power commercial attorney if need be. Smoking status: Light tobacco smoker Tobacco type: cigarettes Additional smoking assessment comments: smokes 1 cigarette on occasion while drinking Alcohol intake: current
--- NOTE | 2020-07-22 12:44 | PM.IMPN ---
Progress Note: A&P Assessment and Plan (1) Abdominal pain: Qualifiers: Abdominal location: epigastric Qualified Code(s): R10.13 - Epigastric pain Code(s): R10.9 - Unspecified abdominal pain Status: Acute Assessment and Plan: Patient presents for evaluation of significant abdominal pain, worst today in RUQ and epigastrium. She first noticed this pain 2 weeks ago and was intermittent at that time, however the pain returned around 2am 07/20 and has been pretty constant since then. Associated nausea/vomiting but none so far today. CT abdomen/pel demonstrates a mild colonic wall thickening which could represent colitis or decompressed colon. CT and RUQ US shows evidence of cholelithiasis without cholecystitis. Mild leukocytosis. Will continue with IV Zosyn to cover for possible colitis. Continue IV hydration, pain control and antiemetics. Will monitor. Appreciate Dr Armendariz's input. HIDA scan was ordered however won't be able to be performed over the weekend. Appreciate general surgery consultation - feel that her pain today seems most consistent with biliary dysfunction. Appreciate Dr Kendrick's input - plan is for lap radhika tomorrow. NPO at midnight. (2) Cholelithiasis: Qualifiers: Biliary obstruction: without biliary obstruction Cholecystitis presence: without cholecystitis Cholelithiasis location: gallbladder Qualified Code(s): K80.20 - Calculus of gallbladder without cholecystitis without obstruction Code(s): K80.20 - Calculus of gallbladder without cholecystitis without obstruction Status: Acute Assessment and Plan: Without evidence of cholecystitis however patient continues with significant pain. Appreciate general surgery consultation in this setting. (3) Constipation: Qualifiers: Constipation type: unspecified constipation type Qualified Code(s): K59.00 - Constipation, unspecified Code(s): K59.00 - Constipation, unspecified Status: Chronic Assessment and Plan: Had BMs yesterday after miralax, suppositories and mag citrate. Continue a bowel regimen as needed. Subjective Date/time seen: 07/22/20 0945 Interval history: Ms. Sams is a 25yo F admitted for abdominal pain. Her pain is still significant this morning, today is worst in the right upper quadrant and epigastrium. She reports a bit of nausea this morning that is now resolved, denies vomiting. She had a couple loose BMs last night and one this morning and reports a bit of improvement in abdominal bloating but continues to have sharp RUQ pain. She is having trouble taking in deep breaths due to pain. She was happy to eat a bit of cereal for breakfast. Review of Systems Review of Systems: All systems reviewed & are unremarkable except as noted in HPI and below Exam Narrative: Exam Narrative: General: Female resting supine in bed, appears uncomfortable due to pain. HEENT: Normocephalic, EOMI, oral mucosa moist. Cardiovascular: Rate and rhythm are regular. No notable murmur, rub, or gallop. Respiratory: Lungs clear to auscultation all melo. Non-labored breathing. Abdomen: Soft, non-distended, bowel sounds present. Diffuse tenderness to palpation with voluntary guarding worst in RUQ and epigastrium. Extremities: Peripheral pulses intact. No edema. Neuro: No focal neurological deficits. Speech is clear. Objective Data Vital Signs Vital Signs: Last Vital Signs Temp 98.5 F 07/22/20 06:00 Pulse 80 07/22/20 08:00 Resp 16 07/22/20 06:00 BP 108/56 L 07/22/20 06:00 Pulse Ox 97 07/22/20 06:00 Intake/Output Intake/Output: Intake & Output 07/19/20 07/20/20 07/21/20 07/22/20 23:59 23:59 23:59 23:59 Intake Total 1200 3860 3330 Output Total 2300 1200 Balance 1200 1560 2130 Meds/Results Medications: Active Medicat
[2020-07-22 13:58] VITALS: BP 118/66; PULSE 71; RESP 20; TEMP 36.3; O2SAT 99
[2020-07-22 21:54] VITALS: BP 128/71; PULSE 65; RESP 16; TEMP 37.1; O2SAT 99
[2020-07-22] MEDS: SODIUM CHLORIDE 0.9% IV 1,000 ML 100 ML IV CONT (22:42)
[2020-07-23] VITALS (14 sets, daily range): BP systolic 107–147; BP diastolic 62–98; PULSE 60–96; RESP 14–26; TEMP 36.6–37.7; O2SAT 95–100
[2020-07-23] MEDS: ONDANSETRON INJ 4 MG/2 ML VIAL IV PUSH (02:42)
[2020-07-23] MEDS: HYDROmorphone HCL INJ (*CRX) 1 MG/ML SYR 0.5 MG IV PUSH ×5 (02:44→20:52)
[2020-07-23 05:45] LABS: Basophils Absolute Auto 0.1 K/mm3 (0.0-0.1); Basophils Percent Auto 0.5 % (0.2-1.2); Eosinophils Absolute Auto 0.7 K/mm3 (0-0.3); Eosinophils Percent Auto 6.5 % (0-4.4); Hematocrit 31.7 % (37.0-47.0); Hemoglobin 10.5 g/dL (12.0-15.0); Immature Granulocyte Absolute 0.04 K/mm3 (0.00-0.031); Immature Granulocyte Percent A 0.4 % (0-0.5); Mean Corpuscular HGB Conc 33.1 g/dl (32-36); Mean Corpuscular Hemoglobin 29.9 pg (26-34); Mean Corpuscular Volume 90.3 fl (80-100); Mean Platelet Volume 12.2 fl (7.4-10.4); Monocytes Percent Auto 9.6 % (2.6-8.5); Platelet Count Result 214 k/mm3 (150-375); Red Blood Count 3.51 M/mm3 (4.2-5.4); Red Cell Distribution Width 12.2 % (11.5-14.5); White Blood Count 10.6 K/mm3 (4.5-10.0)
[2020-07-23 06:16] LABS: Alanine Aminotransferase 12 U/L (4-35); Albumin Level 3.1 g/dL (3.5-5.1); Alkaline Phosphatase 50 U/L (38-126); Anion Gap 7 mmol/L (8-16); Aspartate Amino Transferase 21 U/L (14-36); Bilirubin,Total 0.3 mg/dL (0.2-1.3); Blood Urea Nitrogen 3 mg/dL (7-17); Carbon Dioxide 24 mmol/L (22-30); Chloride 104 mmol/L (98-107); Estimated CRCL calculation 119 ml/min; Estimated Glomerular Filt Rate > 60; Glucose 98 mg/dL (65-105); Potassium 3.4 mmol/L (3.4-5.0); Sodium 135 mmol/L (137-145)
[2020-07-23] MEDS: SODIUM CHLORIDE 0.9% IV 1,000 ML 100 ML IV CONT (08:21)
[2020-07-23] MEDS: PANTOPRAZOLE SODIUM IV 40 MG VIAL IV PUSH (08:21)
[2020-07-23] MEDS: LACTATED RINGERS 1,000 ML 30 ML IV CONT ×2 (08:40→11:54)
--- NOTE | 2020-07-23 09:12 | WPDANESEPPF ---
Anes - Initial Pre Proc Eval Procedure: Operation Date: 07/23/20 10:00 Proposed Procedures p Laparoscopic Cholecystectomy - Stephanie Kendrick MD Date/Time: 07/23/20 09:12 Surgeon: EVI Cisneros Pre Op Diagnosis: intractable abdominal pain with nausea Patient Data Age: 25 Gender: F Height: 5 ft 6 in Weight: 92.8 kg Last Vital Signs Temp 36.6 C 07/23/20 08:40 Pulse 75 07/23/20 08:40 Resp 18 07/23/20 08:40 BP 124/82 07/23/20 08:40 Pulse Ox 97 07/23/20 08:40 Allergies Allergy/AdvReac Type Severity Reaction Status Date / Time horses cats hay straw Allergy Mild Swelling Uncoded 07/20/20 17:18 Home Medications Medication Instructions Recorded Confirmed Type norethindrone 1 mg-ethinyl 1 tablet PO DAILY 07/12/20 07/20/20 History estradiol 35 mcg tablet Laboratory Tests 07/23/20 07/23/20 05:01 05:01 WBC 10.6 K/mm3 H K/mm3 (4.5-10.0) RBC 3.51 M/mm3 L M/mm3 (4.2-5.4) Hgb 10.5 g/dL L g/dL (12.0-15.0) Hct 31.7 % L % (37.0-47.0) MCV 90.3 fl fl (80-100) MCH 29.9 pg pg (26-34) MCHC 33.1 g/dl g/dl (32-36) RDW 12.2 % % (11.5-14.5) Plt Count 214 k/mm3 k/mm3 (150-375) MPV 12.2 fl H fl (7.4-10.4) Immature Gran % (Auto) 0.4 % % (0-0.5) Neut % (Auto) 66.0 % % (45.5-73.1) Lymph % (Auto) 17.0 % L % (18.3-44.2) [place] % (Auto) 9.6 % H % (2.6-8.5) Eos % (Auto) 6.5 % H % (0-4.4) Baso % (Auto) 0.5 % % (0.2-1.2) Lymph # (Auto) 1.80 K/mm3 K/mm3 (0.9-3.2) [place] # (Auto) 1.0 K/mm3 H K/mm3 (0.1-0.6) Eos # (Auto) 0.7 K/mm3 H K/mm3 (0-0.3) Baso # (Auto) 0.1 K/mm3 K/mm3 (0.0-0.1) Abs Immat Gran (auto) 0.04 K/mm3 H K/mm3 (0.00-0.031) Absolute Neuts (auto) 7.0 K/mm3 H K/mm3 (1.3-6.7) Absolute Nucleated RBC 0.0 K/mm3 K/mm3 (0.0-0.012) Nucleated RBC % 0.0 % % (0.0-0.2) Sodium 135 mmol/L L mmol/L (137-145) Potassium 3.4 mmol/L mmol/L (3.4-5.0) Chloride 104 mmol/L mmol/L (98-107) Carbon Dioxide 24 mmol/L mmol/L (22-30) Anion Gap 7 mmol/L L mmol/L (8-16) BUN 3 mg/dL L mg/dL (7-17) Creatinine 0.70 mg/dL mg/dL (0.7-1.0) Estim Creat Clear Calc 119 ml/min ml/min Estimated GFR > 60 (59 - ) Glucose 98 mg/dL mg/dL (65-105) Calcium 8.0 mg/dL L mg/dL (8.4-10.2) Total Bilirubin 0.3 mg/dL mg/dL (0.2-1.3) AST 21 U/L U/L (14-36) ALT 12 U/L U/L (4-35) Alkaline Phosphatase 50 U/L U/L (38-126) Total Protein 6.0 g/dL L g/dL (6.3-8.2) Albumin 3.1 g/dL L g/dL (3.5-5.1) Patient hx anesthesia problems: none Family hx anesthesia problems: other (slow to awaken) [facility] Past Medical History Medical History Anxiety Asthma Chronic GERD Chronic headaches Constipation Surgical History Surgical History H/O wisdom tooth extraction History of nasal surgery x3 Family History Family History Father Myocardial infarction Hypertension Mother History of open heart surgery Grandparent Cancer of unknown origin Ovarian cyst Social History Social History Social History: the patient owns her own home. She is single and has no children. 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 She has a roommate but the roommate is leaving after 1 month. She does not use any alcohol. She has used marijuana in the past. She does not have any power civil attorney. She desires to be a full code. She said that she would choose her dad as a durable power civil attorney if need be. Smoking status: Light tobacco smoker Tobacco type: cigarettes Additi
--- NOTE | 2020-07-23 10:07 | WPDHPUPDATE1 ---
History and Physical Update Update Date/Time: 07/23/20 10:07 History and Physical has been reviewed, including an updated exam of the patient. There are NO changes in the patient's condition. Risks, benefits, and alternatives have been discussed and questions answered. Patient agrees to proceed with procedure.
[2020-07-23] MEDS: BUPIVACAINE/EPINEPHRINE 0.5% 10 ML VIAL 30 ML INFILTRATE (10:46)
--- NOTE | 2020-07-23 10:59 | SUR.OPER ---
Ebl=10ml
--- NOTE | 2020-07-23 11:14 | P.OP_ITS ---
Procedure Note - Detailed Date of procedure: 07/23/20 Pre-op diagnosis: intractable abdominal pain with nausea acute cholecystitis, cholelithiasis Post-op diagnosis: other (hydrops, gangrenous changes in wall of fundus) Procedure performed: laparoscopic cholecystectomy Description of procedure: The patient was taken to the operating room placed in the supine position. After adequate induction of general anesthesia, the patient was prepped and draped in normal sterile fashion. A time-out was then performed to verify the patient's identity as well as the procedure being performed. I then made a 5 mm incision in the infraumbilical region. Through this, a Veress needle was placed into the peritoneal cavity and CO2 gas was then insufflated. After adequate pneumoperitoneum was achieved, the Veress needle was removed and a 5 mm trocar was placed through this incision. I then placed the laparoscope through this trocar site and under direct visualization placed a further 12 mm subxiphoid port as well as 2 additional 5 mm ports in the right upper abdomen. The gallbladder was then identified and was noted to be very inflamed and there was noted patchy ischemia at the dome. Given this, I decompressed the GB with an ovarian needle. The aspiration revealed hydrops. Once decompressed, I was able to place a grasper at the dome of the gallbladder and this was retracted anterior and cephalad up over the liver. A 2nd retractor was then placed at the infundibulum and retracted laterally, this allowed visualization of the triangle of [place]. I then was able to visualize the cystic duct in its entirety from its proximal insertion into the gallbladder, to its distal junction with the common hepatic/common bile duct junction. At this point, I carefully skeletonized the proximal cystic duct with the [place] dissector. I then clipped and transected the proximal cystic duct. Next I visualized the cystic artery. Again the artery was skeletonized, clipped, and transected. I then used the Bovie cautery to take down the peritoneal attachments of the gallbladder off the liver bed. Once the gallbladder specimen was completely detached, an endo-pouch was placed through the 12 mm port site. I then placed the gallbladder specimen into the Endo pouch and removed the endo- pouch from the 12 mm port site. The specimen will now be sent to pathology for further review. I then copiously irrigated the right upper quadrant. Hemostasis was noted in the liver bed, the clips were noted to be in good position on both the cystic duct stump and the cystic artery stump. No other pathology was noted in the right upper quadrant. I then moved the laparoscope to the subxiphoid port. No iatrogenic injury or other pathology was noted in the lower abdomen. At this point, the abdomen was desufflated and all ports removed. The fascia of the 12 mm subxiphoid port was closed with a 0 Vicryl figure of 8 suture. All port sites were then closed with 4.O Monocryl subcuticular sutures. Dermabond was placed on each incision. The patient tolerated the procedure well, was extubated in the operating room postoperative and will be transferred to the recovery room in stable condition. Implants: none Anesthesia: GETA Surgeon: Stephanie Kendrick MD Estimated blood loss (mL): 10 Drains: No Packing: No Pathology: yes Complications: No immediate complications Condition: stable Disposition: PACU Findings: acute cholecystitis c hydrops and stones, patchy ischemia near dome
[2020-07-23] MEDS: fentaNYL CITRATE INJ (*CRX) 100 MCG/2 ML VIAL 25 MCG IV PUSH ×8 (11:29→12:01)
--- NOTE | 2020-07-23 11:48 | SUR.PHASEI ---
PT TEARFUL, ANXIOUS, SHIVERING. LIZYPrakash NICHOLEER APPLIED ON MEDIUM
--- NOTE | 2020-07-23 11:59 | SUR.PHASEI ---
PT RESTING QUIETLY. MORE RELAXED NOW
--- NOTE | 2020-07-23 12:03 | SUR.PHASEI ---
PT STATES HER PAIN IS GETTING BETTER NOW AT 7/10. ABLE TO REST QUIETLY.
--- NOTE | 2020-07-23 12:26 | SUR.PHASEI ---
PT C/O ALL OVER ITCHING. NO RASHES NOTED. DR RIZVI NOTIFIED.
[2020-07-23] MEDS: diphenhydrAMINE HCl INJ 50 MG/ML VIAL 25 MG IV PUSH (12:29)
[2020-07-23] MEDS: HYDROcodone/acetaminophen (*CRX) 5-325 MG TABLET 1 TAB PO ×2 (13:05→18:50)
--- NOTE | 2020-07-23 17:51 | PM.IMPN ---
Progress Note: A&P Assessment and Plan (1) Abdominal pain: Qualifiers: Abdominal location: epigastric Qualified Code(s): R10.13 - Epigastric pain Code(s): R10.9 - Unspecified abdominal pain Status: Acute Assessment and Plan: Patient presents for evaluation of significant epigastric and RUQ abdominal pain. She first noticed this pain 2 weeks ago and was intermittent at that time, however the pain returned around 2am 07/20 and has been pretty constant since then. Associated nausea/vomiting but none so far today. CT abdomen/pel demonstrated a mild colonic wall thickening which could represent colitis or just decompressed colon. CT and RUQ US shows evidence of cholelithiasis without cholecystitis. Mild leukocytosis. Empirically treating with IV Zosyn. Continue IV hydration, pain control and antiemetics. Will monitor. Appreciate input from GI and general surgery. Now s/p lap radhika today. Dr Kendrick noted some gangrenous changes intraoperatively, will continue IV Zosyn for today. Anticipate possible discharge tomorrow if pain is controlled and she can tolerate a diet. (2) Cholelithiasis: Qualifiers: Biliary obstruction: without biliary obstruction Cholecystitis presence: without cholecystitis Cholelithiasis location: gallbladder Qualified Code(s): K80.20 - Calculus of gallbladder without cholecystitis without obstruction Code(s): K80.20 - Calculus of gallbladder without cholecystitis without obstruction Status: Acute Assessment and Plan: Without evidence of cholecystitis however patient continued with significant pain. Now s/p lap radhika, hopefully this will improve her pain. Appreciate general surgery consultation in this setting. (3) Constipation: Qualifiers: Constipation type: unspecified constipation type Qualified Code(s): K59.00 - Constipation, unspecified Code(s): K59.00 - Constipation, unspecified Status: Resolved Assessment and Plan: Had BMs after miralax, suppositories and mag citrate. Continue a bowel regimen as needed. Subjective Date/time seen: 07/23/20 1330 Interval history: Ms. Sams is a 25yo F admitted for abdominal pain. She is seen this afternoon after just returning from PACU s/p lap cholecystectomy by Dr Kendrick. She is rating her pain 8 of 10 at this time and is quite drowsy/tearful and anxious. She reports nausea without vomiting. Denies chest pain or shortness of breath. Review of Systems Review of Systems: All systems reviewed & are unremarkable except as noted in HPI and below Exam Narrative: Exam Narrative: General: Female resting supine in bed, appears uncomfortable and tearful/anxious. HEENT: Normocephalic, EOMI, oral mucosa moist. Cardiovascular: Rate and rhythm are regular. No notable murmur, rub, or gallop. Respiratory: Lungs clear to auscultation all melo. Non-labored breathing. Abdomen: Soft, non-distended, bowel sounds present. Epigastric and RUQ discomfort to palpation, abdominal incisions closed and are clean/dry/intact. Extremities: Peripheral pulses intact. No edema. Neuro: No focal neurological deficits. Speech is clear. Objective Data Vital Signs Vital Signs: Last Vital Signs Temp 99.9 F H 07/23/20 14:30 Pulse 88 07/23/20 14:30 Resp 15 07/23/20 14:30 BP 120/74 07/23/20 14:30 Pulse Ox 97 07/23/20 14:30 Intake/Output Intake/Output: Intake & Output 07/20/20 07/21/20 07/22/20 07/23/20 23:59 23:59 23:59 23:59 Intake Total 1200 3860 4470 2530 Output Total 2300 1200 2400 Balance 1200 1560 3270 130 Meds/Results Medications: Active Medications Generic Name Dose Route Start Last Admin Trade Name Freq PRN Reason Stop Dose Admin Hydrocodone Bitart/Acetaminophen 1 tab 07/23/20 11:13 07/23/20 13:05 Hydrocodone/Acetaminophen
[2020-07-23] MEDS: POTASSIUM CHLORIDE 20 MEQ TABLET 40 MEQ PO (18:58)
[2020-07-23] MEDS: IBUPROFEN IV 800 MG/200 ML 800 MG/200 ML BAG 400 MG IVPB (21:41)
[2020-07-24 02:00] VITALS: BP 129/79; PULSE 58; RESP 16; TEMP 36.8; O2SAT 97
[2020-07-24] MEDS: HYDROcodone/acetaminophen (*CRX) 5-325 MG TABLET 1 TAB PO ×2 (02:18→08:02)
[2020-07-24] MEDS: SODIUM CHLORIDE 0.9% IV 1,000 ML 100 ML IV CONT (02:18)
[2020-07-24 05:52] VITALS: BP 126/69; PULSE 55; RESP 16; TEMP 36.3; O2SAT 98
[2020-07-24 06:06] LABS: Basophils Percent Auto 0.3 % (0.2-1.2); Eosinophils Absolute Auto 0.1 K/mm3 (0-0.3); Hematocrit 29.3 % (37.0-47.0); Hemoglobin 9.9 g/dL (12.0-15.0); Immature Granulocyte Absolute 0.05 K/mm3 (0.00-0.031); Immature Granulocyte Percent A 0.4 % (0-0.5); Lymphocytes Absolute Auto 2.06 K/mm3 (0.9-3.2); Lymphocytes Percent Auto 17.7 % (18.3-44.2); Mean Corpuscular HGB Conc 33.8 g/dl (32-36); Mean Corpuscular Hemoglobin 29.9 pg (26-34); Mean Corpuscular Volume 88.5 fl (80-100); Monocytes Absolute Auto 1.3 K/mm3 (0.1-0.6); Monocytes Percent Auto 11.2 % (2.6-8.5); Neutrophils Absolute Auto 8.1 K/mm3 (1.3-6.7); Neutrophils Percent Auto 69.4 % (45.5-73.1); Platelet Count Result 234 k/mm3 (150-375); Red Blood Count 3.31 M/mm3 (4.2-5.4); Red Cell Distribution Width 11.9 % (11.5-14.5); White Blood Count 11.6 K/mm3 (4.5-10.0)
[2020-07-24 06:28] LABS: Anion Gap 6 mmol/L (8-16); Blood Urea Nitrogen 5 mg/dL (7-17); Carbon Dioxide 25 mmol/L (22-30); Chloride 106 mmol/L (98-107); Estimated CRCL calculation 119 ml/min; Estimated Glomerular Filt Rate > 60; Glucose 94 mg/dL (65-105); Potassium 3.7 mmol/L (3.4-5.0); Sodium 137 mmol/L (137-145)
--- NOTE | 2020-07-24 08:02 | WPDANESPN ---
Anes - Prog Note Post-Op Date/Time: 07/24/20 08:02 Cardiovascular status: normal Respiratory status: normal Airway patency: baseline Mental status: baseline Post-Op hydration status: normal Vital Signs: Last Vital Signs Temp 36.3 C L 07/24/20 05:52 Pulse 55 L 07/24/20 05:52 Resp 16 07/24/20 05:52 BP 126/69 07/24/20 05:52 Pulse Ox 98 07/24/20 05:52 Pain Score (VAS): 3 I/O: Intake & Output 07/23/20 07/24/20 07/24/20 23:59 07:59 15:59 Intake Total 1450 1000 Output Total 1250 1500 Balance 200 -500 Laboratory Tests 07/24/20 05:20 07/24/20 05:20 07/24/20 07/24/20 05:20 05:20 WBC 11.6 H RBC 3.31 L Hgb 9.9 L Hct 29.3 L MCV 88.5 MCH 29.9 MCHC 33.8 RDW 11.9 Plt Count 234 MPV 12.0 H Immature Gran % (Auto) 0.4 Neut % (Auto) 69.4 Lymph % (Auto) 17.7 L [place] % (Auto) 11.2 H Eos % (Auto) 1.0 Baso % (Auto) 0.3 Lymph # (Auto) 2.06 [place] # (Auto) 1.3 H Eos # (Auto) 0.1 Baso # (Auto) 0.0 Abs Immat Gran (auto) 0.05 H Absolute Neuts (auto) 8.1 H Absolute Nucleated RBC 0.0 Nucleated RBC % 0.0 Sodium 137 Potassium 3.7 Chloride 106 Carbon Dioxide 25 Anion Gap 6 L BUN 5 L Creatinine 0.70 Estim Creat Clear Calc 119 Estimated GFR > 60 Glucose 94 Calcium 8.0 L Magnesium 2.0 Post-procedural complaints: none Patient Feedback: Patient satisfied with anesthetic care.
[2020-07-24] MEDS: PANTOPRAZOLE SODIUM IV 40 MG VIAL IV PUSH (08:03)
[2020-07-24] MEDS: polyethylene glycoL 3350 17 GM POWD.PACK PO (08:05)
[2020-07-24 09:46] VITALS: BP 133/80; PULSE 64; RESP 20; TEMP 36.5; O2SAT 98
--- NOTE | 2020-07-24 09:48 | PM.DS ---
DS: Admitting Diagnosis Admitting Diagnosis Admitting Diagnosis: intractable abdominal pain with nausea DS: Discharge Diagnosis Discharge Diagnosis (1) Acute cholecystitis: Code(s): K81.0 - Acute cholecystitis Status: Acute Assessment and Plan: -----pathology confirmed acute partially necrotizing cholecystitis with cholelithiasis. Patient underwent a cholecystectomy 07/23/20 with no immediate complications and was able to be discharged home the next day. She received IV antibiotics while she was here but no further antibiotics were indicated by surgery at discharge (2) Cholelithiasis: Qualifiers: Biliary obstruction: without biliary obstruction Cholecystitis presence: without cholecystitis Cholelithiasis location: gallbladder Qualified Code(s): K80.20 - Calculus of gallbladder without cholecystitis without obstruction Code(s): K80.20 - Calculus of gallbladder without cholecystitis without obstruction Status: Acute (3) Abdominal pain: Qualifiers: Abdominal location: epigastric Qualified Code(s): R10.13 - Epigastric pain Code(s): R10.9 - Unspecified abdominal pain Status: Acute (4) Constipation: Qualifiers: Constipation type: unspecified constipation type Qualified Code(s): K59.00 - Constipation, unspecified Code(s): K59.00 - Constipation, unspecified Status: Resolved DS: Summary Hospital Course Reason for hospitalization: Abdominal pain Hospital Course: Pt is a 25 y/o female who presented emergency room for continuous and worsening abdominal pain. Temperature 98.2?, pulse 82, respiratory rate 22, blood pressure 122/102, pulse ox 100 on room air. Initial white blood cell count 11.0. BMP within normal limits. CT abdomen pelvis showed mild wall thickening in the decompressed distal colon suspicious for colitis which could be infectious, inflammatory or less likely ischemic, cholelithiasis, small sliding scale hernia, 2 cm uterine fibroid and a 1.8 cm left ovarian cyst. Patient was admitted to the hospitalist service and initially started on Zosyn. Colitis did not seen very prominent clinically. She states she has a long history of constipation and we talked about how to prevent that. She underwent laparoscopic cholecystectomy in felt much better afterwards. Please see above for further details. The day of discharge the patient was educated about the worrisome signs and symptoms to come back to emergency room for and was discharged in stable condition. Status at Discharge Functional status at discharge: independent ambulation Overall status at discharge: patient is back to baseline Time Spent with Patient Time attestation: Total time spent providing and/or coordinating discharge services:35 min Time spent: Greater than 30 minutes Exam Narrative: Exam Narrative: General: Well developed well nourished patient in NAD HEENT: normocephalic Neck: supple Neuro: Alert and oriented x4 CV:RRR Resp:CTA Abd: Soft, non distended. Incision sites clean and dry without discharge, bleeding or dehiscence. Positive bowel sounds Extremities: No swelling, erythema, or pain to palpation. DS: Data Data Completed and Pending Pending studies at discharge: Pending at discharge 07/23/20 10:45 Surgical [PTH] Routine Labs on day of discharge: Labs from last 24 hours 07/24/20 07/24/20 05:20 05:20 WBC 11.6 H RBC 3.31 L Hgb 9.9 L Hct 29.3 L MCV 88.5 MCH 29.9 MCHC 33.8 RDW 11.9 Plt Count 234 MPV 12.0 H Immature Gran % (Auto) 0.4 Neut % (Auto) 69.4 Lymph % (Auto) 17.7 L Bill[place] % (Auto) 11.2 H Eos % (Auto) 1.0 Baso % (Auto) 0.3 Lymph # (Auto) 2.06 [place] # (Auto) 1.3 H Eos # (Auto) 0.1 Baso # (Auto) 0.0 Abs Immat Gran (auto) 0.05 H Absolute Neuts (auto) 8.1 H Absolute Nucleated RBC 0.0 Nucleated RBC % 0.0 Sodium 137 Potassium 3.7 Chloride 106 Carbon Dioxide 25
--- NOTE | 2020-07-24 11:49 | PM.PNGS ---
Progress Note: A&P Assessment and Plan (1) Cholelithiasis: Qualifiers: Biliary obstruction: without biliary obstruction Cholecystitis presence: without cholecystitis Cholelithiasis location: gallbladder Qualified Code(s): K80.20 - Calculus of gallbladder without cholecystitis without obstruction Code(s): K80.20 - Calculus of gallbladder without cholecystitis without obstruction Status: Acute Additional Plan doing well, ok to dc home c po analgesia, ok to dc abx, f/u 2 wks Subjective Subjective Date/Time Seen: 07/24/20 11:49 feels good, some mild incisional soreness Review of Systems Constitutional: Constitutional: Denies chills, Denies fever(s) and Denies weakness Cardiovascular: Cardiovascular: Reports no additional cardiovascular complaints Respiratory: Respiratory: Reports no additional respiratory complaints Gastrointestinal: Gastrointestinal: Reports abdominal pain, Denies bloating, Denies nausea and Denies vomiting Exam Const: General: comfortable and no acute distress Resp: Effort & Inspection: normal respiratory effort Auscultation: clear to auscultation bilaterally Cardio: Rate: regular rate Rhythm: regular rhythm GI: Inspection: non-distended GI Palp: Yes abdominal tenderness, Yes Soft to palpation, No Firmness to palpation present (GI), Yes Tenderness to palpation present (GI) and No Guarding due to palpation present (GI) Other: soft, sl dist, ramon TTP, incision C/D/I Objective Data Vital Signs Vital Signs: Vital Signs - 24 hr 07/23/20 12:00 07/23/20 12:15 07/23/20 12:30 Temperature 36.8 C 36.8 C Pulse Rate 70 68 87 Respiratory Rate 22 H 16 20 Blood Pressure 134/75 133/79 130/82 Pulse Oximetry 96 96 96 07/23/20 12:45 07/23/20 13:00 07/23/20 13:30 Temperature 36.8 C 37.3 C 37.6 C Pulse Rate 65 71 74 Respiratory Rate 17 15 14 Blood Pressure 123/68 117/73 121/77 Pulse Oximetry 96 95 96 07/23/20 14:30 07/23/20 19:02 07/23/20 21:37 Temperature 37.7 C H 37.3 C 36.9 C Pulse Rate 88 96 72 Respiratory Rate 15 24 H 20 Blood Pressure 120/74 147/98 H 136/86 Pulse Oximetry 97 95 95 07/24/20 02:00 07/24/20 05:52 07/24/20 09:46 Temperature 36.8 C 36.3 C L 36.5 C Pulse Rate 58 L 55 L 64 Respiratory Rate 16 16 20 Blood Pressure 129/79 126/69 133/80 Pulse Oximetry 97 98 98 Intake/Output Intake/Output: Intake & Output 07/21/20 07/22/20 07/23/20 07/24/20 23:59 23:59 23:59 23:59 Intake Total 3860 4470 3830 1240 Output Total 2300 1200 2400 1500 Balance 1560 3270 1430 -260 Meds/Results Medications: Active Medications Generic Name Dose Route Start Last Admin Trade Name Freq PRN Reason Stop Dose Admin Hydrocodone Bitart/Acetaminophen 1 tab 07/23/20 11:13 07/24/20 08:02 Hydrocodone/Acetaminophen (*Crx) 5-325 Mg Tablet PO 1 tab Q6H PRN Administration Pain Rated 4-6 Hydromorphone HCl 0.5 mg 07/23/20 19:41 07/23/20 20:52 Hydromorphone Hcl Inj (*Crx) 1 Mg/Ml Syr IV PUSH 0.5 mg Q2H PRN Administration Pain Rated 7-10 Non-Formulary Medication 1 tablet 07/24/20 09:00 Norethindrone-Ethin Estradiol [Alyacen (28)] PO 08/23/20 09:01 DAILY DENI Ondansetron HCl 4 mg 07/20/20 15:14 07/23/20 02:42 Ondansetron Inj 4 Mg/2 Ml Vial IV PUSH 4 mg Q4H PRN Administration Nausea Pantoprazole Sodium 40 mg 07/21/20 09:00 07/24/20 08:03 Pantoprazole Sodium Iv 40 Mg Vial IV PUSH 40 mg QAM DENI Administration Polyethylene Glycol 17 gm 07/21/20 09:31 07/24/20 08:05 Polyethylene Glycol 3350 17 Gm Powd.Pack PO 17 gm QAM PRN Administration Constipation Radiology Results: ITS Impressions Abdomen/Pelvis CT 07/20/20 13:22 IMPRESSION: 1. Mild wall thickening in the decompressed distal colon suspicious for colitis which could be infectious, inflammatory or less likely ischemic in etiology.. 2. Cholelithiasis. 3. Small sliding-type hiatal hernia. 4. 2 cm uterine fibroid. 5. 1.8 cm left ovar
== END 2020-07-24 11:55 | disposition home or self-care (01) | DRG 418 ==
LOC: ANHED 15:16 → ANH2MED 15:48
PROVIDERS: Nurse Practitioner; Physician Assistant; Surgery; Admitting Provider Internal Medicine; Emergency Provider General Practice; PCP Family Medicine; Visit Provider Physician Assistant
PROC: 0FT44ZZ Resection of Gallbladder, Percutaneous Endoscopic Approach (ICD-10-PCS; CPT 47562; principal; 2020-07-23 10:00)
DX: K80.00 Calculus of gallbladder with acute cholecystitis without obstruction (principal); K82.1 Hydrops of gallbladder; K59.00 Constipation, unspecified; F17.210 Nicotine dependence, cigarettes, uncomplicated; K21.9 Gastro-esophageal reflux disease without esophagitis; Z23 Encounter for immunization; Z79.899 Other long term (current) drug therapy
CPT/HCPCS: 36415; 74177; 76705; 80048; 80053; 81001; 81025; 83690; 83735; 84443; 84484; 85025; 88304; 93005; 96361; 96365; 96367; 96372; 96375; 96376; 99285; A9270; C9113; G0378; J0131; J0500; J1100; J1170; J1200; J1741; J1885; J2250; J2270; J2405; J2543; J2704; J2710; J3010; J7030; J7120; Q9967

== ENCOUNTER 2020-09-11 09:22 | Outpatient (NON) | payer OTHER, SELFPAY ==
[2020-09-11 11:23] LABS: Influenza Control Positive
== END 2020-09-11 09:23 ==
PROVIDERS: PCP Family Medicine; Visit Provider Nurse Practitioner Family
DX: R05 Cough (principal)
CPT/HCPCS: 87804